=== PATIENT | female | born 1940 | race Caucasian/White ===

== ENCOUNTER 2022-01-11 21:34 | Emergency (ER) | payer MEDICARE, OTHER ==
[2022-01-11 22:10] LABS: HEMOGLOBIN 13.1 gm/dl (12.3-15.3); RED BLOOD COUNT 4.51 M/UL (4.00-5.10); WHITE BLOOD COUNT 6.1 K/UL (4.5-11.0)
[2022-01-12] MEDS ORDERED: ZOFRAN 4 MG TAB4 MG PO (01:54)
== END 2022-01-12 04:00 | disposition home or self-care (01) ==
LOC: ER1 21:34
PROVIDERS: Emergency Medicine
DX: R11.2 Nausea with vomiting, unspecified (principal); R55 Syncope and collapse; I10 Essential (primary) hypertension; K21.9 Gastro-esophageal reflux disease without esophagitis; Z51.81 Encounter for therapeutic drug level monitoring; Z20.822 Contact with and (suspected) exposure to COVID-19
CPT/HCPCS: 71045; 80053; 81001; 83690; 83735; 83880; 84439; 84443; 84484; 85025; 85610; 85730; 86140; 93005; 96361; 96374; 99284; J2405; U0002